=== PATIENT | female | born 1990 | race African-American/Black ===

== ENCOUNTER 2016-09-16 19:13 | Emergency (ER) | payer MEDICAID, OTHER ==
[2016-09-16] MEDS ORDERED: Ketorolac Tromethamine 60 MG/2 ML VIAL ONE (19:33)
[2016-09-16] MEDS ORDERED: HYDROcodone/Acetaminophen 10/325 mg Tablet ONE (19:46)
== END 2016-09-16 20:00 | disposition home or self-care (01) ==
LOC: NAV ERS 19:13
DX: K08.89 Other specified disorders of teeth and supporting structures (principal)
CPT/HCPCS: 96372; J1885

== ENCOUNTER 2018-12-07 01:10 | Emergency (ER) | payer BC ==
[2018-12-07] MEDS ORDERED: Adacel (T-DAP) 0.5 ML SYRINGE ONE (01:25)
[2018-12-07] MEDS ORDERED: Lidocaine 1% (PF) 30 ML VIAL ONE (01:54)
[2018-12-07] MEDS ORDERED: Bacitracin Zinc 1 Packet ONE (02:20)
== END 2018-12-07 02:25 | disposition home or self-care (01) ==
LOC: NAV ERS 01:10
DX: S61.412A Laceration without foreign body of left hand, initial encounter (principal); W26.8XXA Contact with other sharp object(s), not elsewhere classified, initial encounter
CPT/HCPCS: 12001; 90471; 90715; J2001

== ENCOUNTER 2019-09-05 16:20 | Emergency (ER) | payer BC ==
[2019-09-05 17:10] LABS: Pregnancy Test - Urine (BHCG) Negative (Negative); Pregu Control Background? CLEAR/WHITE (CLR/WHITE); Pregu Control Bar Appear? YES (CONTROL BAR); Specific Gravity 1.024 (1.002-1.036)
== END 2019-09-05 17:37 | disposition home or self-care (01) ==
LOC: NAV ERS 16:20
DX: R07.89 Other chest pain (principal); R11.0 Nausea; F17.290 Nicotine dependence, other tobacco product, uncomplicated
CPT/HCPCS: 81025; 99284

== ENCOUNTER → 2020-03-03 | Emergency (ER) | payer BC, OTHER ==
[2020-03-04 14:03] LABS: SARS-CoV-2 by NAA DETECTED (NotDetected)
[2020-03-04 14:04] LABS: SARS-CoV-2 MS2 Positive; SARS-CoV-2 N Gene Positive; SARS-CoV-2 S Gene Positive; SARS-CoV-2 orf1ab Positive
== END ==
LOC: NAV ERS 13:22
DX: U07.1 COVID-19 (principal); Z87.891 Personal history of nicotine dependence
CPT/HCPCS: 87635; 99283; U0003

== ENCOUNTER 2020-07-18 11:17 | Emergency (ER) | payer BC | END 2020-07-18 12:18 | disposition home or self-care (01) | LOC: NAV ERS 11:17 | DX: Z20.828 Contact with and (suspected) exposure to other viral communicable diseases (principal); Z87.891 Personal history of nicotine dependence | CPT/HCPCS: 99283 ==

== ENCOUNTER 2021-03-22 18:59 | Emergency (ER) | payer BC, SELFPAY ==
[2021-03-22 19:51] LABS: Pregnancy Test - Urine (BHCG) Negative (Negative); Pregu Control Background? CLEAR/WHITE (CLR/WHITE); Pregu Control Bar Appear? YES (CONTROL BAR); Specific Gravity 1.019 (1.002-1.036)
== END 2021-03-22 20:04 | disposition home or self-care (01) ==
LOC: NAV ERS 18:59
DX: R11.0 Nausea (principal); Z87.891 Personal history of nicotine dependence
CPT/HCPCS: 81025; 99281

== ENCOUNTER 2023-06-29 17:10 | Emergency (ER) | payer SELFPAY ==
[2023-06-29 17:58] LABS: #Basophils 0.1 thou/uL (0.0-0.2); #Eosinphils 0.3 thou/uL (0.0-0.7); #Lymphocytes 2.4 thou/uL (1.20-3.40); #Monocytes 0.3 thou/uL (0.11-0.59); #Neutrophils 3.6 thou/uL (1.40-6.50); %Basophils 1.5 % (0.0-1.0); %Eosinophils 3.8 % (0.0-10.0); %Lymphocytes 35.9 % (21.0-51.0); %Monocytes 4.6 % (0.0-10.0); %Neutrophils 54.3 % (42.0-75.0); Hematocrit 34.7 % (36.0-47.0); Hemoglobin 11.3 g/dL (12.0-16.0); Mean Corpuscular HGB CONC 32.7 g/dL (32.0-36.0); Mean Corpuscular Hemoglobin 26.4 pg (27.0-31.0); Mean Corpuscular Volume 80.8 fl (78.0-98.0); Mean Platelet Volume 7.1 fL (7.4-10.4); Platelet Count 318 10x3/uL (130-400); RBC Distribution Width 13.8 % (11.5-14.5); Red Blood Cell (RBC) Count 4.29 mill/uL (4.20-5.40); White Blood Cell (WBC) Count 6.7 10x3/uL (4.8-10.8)
[2023-06-29 18:09] LABS: Anion Gap 13 mmol/L (10-20); BUN (Urea Nitrogen) 10 mg/dL (7.0-18.7); Calc. Creatinine Clearance 0 mL/min (70-130); Calcium 8.9 mg/dL (7.8-10.44); Carbon Dioxide 24 mmol/L (22-29); Chloride 104 mmol/L (98-107); Estimated GFR 93; Glucose 145 mg/dL (70-105); Potassium 3.7 mmol/L (3.5-5.1); Sodium 137 mmol/L (136-145)
== END 2023-06-29 18:50 | disposition home or self-care (01) ==
LOC: NAV ERS 17:10
DX: M25.751 Osteophyte, right hip (principal); I10 Essential (primary) hypertension
CPT/HCPCS: 36415; 72170; 80048; 85025; 85379

== ENCOUNTER 2024-03-10 11:59 | Emergency (ER) | payer SELFPAY | END 2024-03-10 12:34 | disposition home or self-care (01) | LOC: NAV ERS 11:59 | DX: Z20.828 Contact with and (suspected) exposure to other viral communicable diseases (principal); I10 Essential (primary) hypertension | CPT/HCPCS: 99282 ==

== ENCOUNTER 2024-04-08 11:55 | Emergency (ER) | payer OTHER, SELFPAY ==
[2024-04-08] MEDS ORDERED: Bacitracin 1 PK ONE (12:12)
[2024-04-08] MEDS ORDERED: Boostrix 0.5 ML (Tdap) VIAL (>/=7 yrs of age) ONE (12:16)
== END 2024-04-08 12:30 | disposition home or self-care (01) ==
LOC: NAV ERS 11:55
DX: T25.122A Burn of first degree of left foot, initial encounter (principal); I10 Essential (primary) hypertension; X12.XXXA Contact with other hot fluids, initial encounter
CPT/HCPCS: 90471; 90715

== ENCOUNTER 2024-08-23 14:29 | Emergency (ER) | payer SELFPAY ==
[2024-08-23 15:21] LABS: Bilirubin Small (Negative); Blood, Urine Large (Negative); Glucose, Urine (Dipstick) Negative (Negative); Ketone, Urine Trace mg/dL (Negative); Leukocyte Trace (Negative); Nitrite Negative (Negative); Protein, Urine (Dipstick) > or equal to 300 mg/dL (Neg-Trace); Specific Gravity, Urine 1.025 (1.005-1.030); pH, Urine 5.5 (5.0-9.0)
[2024-08-23 15:29] LABS: Bacteria/HPF 3+ HPF (None Seen); CAUTI Indications for Culture Pelvic or flank pain; Clarity Bloody (Clear); RBC/HPF Greater than 50 HPF (0-3); Squamous Epithelial 0-3 HPF (0-3); Transitional Epithelial 0-3 HPF (None Seen); WBC/HPF Greater than 50 HPF (0-3)
[2024-08-23 15:31] LABS: Urine Culture Reflex Yes Yes
[2024-08-23 15:34] LABS: Pregnancy Test - Urine (BHCG) Negative (Negative); Pregu Control Background? CLEAR/WHITE (CLR/WHITE); Pregu Control Bar Appear? YES (CONTROL BAR); Specific Gravity 1.025 (1.002-1.036)
[2024-08-23] MEDS ORDERED: Sulfameth/Trimethoprim DS 800-160mg TAB ONE (15:50)
== END 2024-08-23 16:09 | disposition home or self-care (01) ==
LOC: NAV ERS 14:29
DX: N30.01 Acute cystitis with hematuria (principal); I10 Essential (primary) hypertension
CPT/HCPCS: 81001; 81025; 87086; 99283